=== PATIENT | female | born 1940 | race Caucasian/White ===

== ENCOUNTER 2023-04-09 23:17 | Inpatient (IN) | payer OTHER ==
[~2023-04-09] VITALS: Ht 165.1 cm; Wt 66.2 kg
[2023-04-10 01:07] LABS: BASOPHILS # (AUTO) 0.1 K/uL (0.0-0.2); BASOPHILS % (AUTO) 1.1 % (0.0-2.0); EOSINOPHILS # (AUTO) 0.1 K/uL (0.0-0.7); EOSINOPHILS % (AUTO) 1.2 % (0.0-6.0); HEMATOCRIT 45 % (33-45); HEMOGLOBIN 15.1 g/dL (11.5-14.8); LYMPHOCYTES # (AUTO) 2.1 K/uL (0.8-4.8); LYMPHOCYTES % (AUTO) 17.2 % (20.0-44.0); MEAN CORPUSCULAR HEMOGLOBIN 31 PG (26.0-33.0); MEAN CORPUSCULAR HGB CONC 33 g/dl (31.0-36.0); MEAN CORPUSCULAR VOLUME 93 fL (82-100); MONOCYTES # (AUTO) 0.7 K/uL (0.1-1.30); MONOCYTES % (AUTO) 5.8 % (2.0-12.0); NEUTROPHILS # (AUTO) 9.1 K/uL (1.8-8.9); NEUTROPHILS % (AUTO) 74.7 % (43.0-81.0); PLATELET COUNT (AUTO) 288 K/uL (150-450); RED BLOOD CELL COUNT(AUTO) 4.88 MIL/uL (4.0-5.2); RED CELL DISTRIBUTION WIDTH 14.3 % (11.5-15.0); WHITE BLOOD COUNT (AUTO) 12.2 K/uL (4.3-11.0)
[2023-04-10 01:15] LABS: CALCIUM, SERUM 9.4 mg/dL (8.5-10.1); CARBON DIOXIDE 27 mmol/L (21-32); CHLORIDE 99 mmol/L (98-107); CREATININE 0.8 mg/dL (0.6-1.3); GLUCOSE 111 mg/dL (74-106); POTASSIUM 3.2 mmol/L (3.5-5.1); SODIUM SERUM 137 mmol/L (136-145); UREA NITROGEN, BLOOD 19 mg/dL (7-18)
[2023-04-10 01:29] LABS: ALANINE AMINOTRANSFERASE 23 U/L (12-78); ALBUMIN 4.1 g/dL (3.4-5.0); ALKALINE PHOSPHATASE 88 U/L (46-116); ASPARTATE AMINOTRANSFERASE 14 U/L (15-37); BILIRUBIN,DIRECT 0.1 mg/dL (0.0-0.2); BILIRUBIN,TOTAL 0.3 mg/dL (0.2-1.0); NT-PRO BNP 694 pg/mL (0-125); TOTAL PROTEIN, SERUM 7.6 g/dL (6.4-8.2)
[2023-04-10 01:30] LABS: INR 1.01 (0.91-1.10); PARTIAL THROMBOPLASTIN TIME 31.7 SEC (24.3-34.3); PROTHROMBIN TIME 10.7 SECS (9.2-11.1)
[2023-04-10] MEDS: FUROSEMIDE 40 MG/4 ML VIAL IV ONE (02:03)
[2023-04-10] MEDS ORDERED: FUROSEMIDE 40 MG/4 ML VIAL ONE (02:03)
[2023-04-10] MEDS ORDERED: AZITHROMYCIN 500 MG VIAL ONE (04:47)
[2023-04-10] MEDS ORDERED: CEFTRIAXONE 1GM BAG (ER ONLY) 50 ML IV ONE (04:47)
[2023-04-10] MEDS: CEFTRIAXONE 1GM BAG (ER ONLY) 1 GM/50 ML PIGGYBACK IV ONE (04:48)
[2023-04-10] MEDS: AZITHROMYCIN 500 MG in IV D5W 250 ML IV ONE (04:49)
[2023-04-10] MEDS ORDERED: ALBUTEROL FS 2.5 MG/0.5 ML VIAL.NEB NEB PRN (06:00)
[2023-04-10] MEDS ORDERED: MORPHINE SULFATE INJ 2 MG/ML DISP.SYRIN IV PRN (06:00)
[2023-04-10] MEDS ORDERED: hydrALAZINE HCL IV 20 MG VIAL IV PRN (06:00)
[2023-04-10] MEDS ORDERED: IPRATROPIUM/ALBUTEROL INHALER IH SCH (06:00)
[2023-04-10] MEDS ORDERED: ONDANSETRON HCL/PF 4 MG/2 ML VIAL IVP PRN (06:00)
[2023-04-10] MEDS ORDERED: AMIODARONE 450 MG in IV D5W 250 ML IV PRN (08:00)
[2023-04-10 08:16] VITALS: O2SAT 98
[2023-04-10] MEDS: IPRATROPIUM NEB FS 0.5 MG/2.5 ML AMPUL.NEB NEB SCH (08:16)
[2023-04-10] MEDS: ALBUTEROL FS 2.5 MG/3 ML VIAL.NEB NEB SCH (08:16)
[2023-04-10] MEDS ORDERED: ALBUTEROL FS 2.5 MG/3 ML VIAL.NEB ONE (08:17)
[2023-04-10] MEDS ORDERED: IPRATROPIUM NEB FS 0.5 MG/2.5 ML AMPUL.NEB ONE (08:17)
[2023-04-10] MEDS: AMIODARONE 150 MG in IV D5W 100 ML IV ONE (08:31)
[2023-04-10 08:32] VITALS: O2SAT 100
[2023-04-10] MEDS ORDERED: HEPARIN SODIUM, PORCINE 5000 UNITS/1 ML VIAL SQ SCH (09:00)
[2023-04-10] MEDS: AMIODARONE 450 MG in IV D5W 241 ML IV PRN (09:12)
[2023-04-10] MEDS ORDERED: APIXABAN 5 MG TABLET ONE (09:14)
[2023-04-10] MEDS ORDERED: POTASSIUM CHLORIDE 20 MEQ TAB.PRT.SR PO ONE ×2 (09:14→09:25)
[2023-04-10] MEDS: POTASSIUM CHLORIDE 20 MEQ TAB.PRT.SR PO SCH (09:17)
[2023-04-10] MEDS: APIXABAN 5 MG TABLET PO SCH (09:18)
[2023-04-10] MEDS: AMIODARONE HCL 200 MG TABLET PO SCH (11:09)
[2023-04-10] MEDS ORDERED: MAGN200T5 PO (12:53)
[2023-04-10] MEDS ORDERED: AMIO100T4 PO (12:53)
[2023-04-10] MEDS ORDERED: KETO120S5 TP (12:53)
[2023-04-10] MEDS ORDERED: IPRA21SP NS (12:53)
[2023-04-10] MEDS ORDERED: ZOLP5TAB8 PO (12:53)
[2023-04-10] MEDS ORDERED: LORA10TA7 PO (12:53)
[2023-04-10] MEDS ORDERED: APIX2.5T PO (12:53)
[2023-04-10 14:05] VITALS: O2SAT 100
[2023-04-10] MEDS ORDERED: APIXABAN 2.5 MG TABLET PO SCH (17:00)
[2023-04-10 19:34] VITALS: O2SAT 100
[2023-04-10 20:00] VITALS: BP 131/68; TEMP 98.4; O2SAT 99
[2023-04-10] MEDS: ZOLPIDEM TARTRATE 5 MG TABLET PO PRN (21:09)
[2023-04-11] VITALS: BP 124/68; TEMP 98.2; O2SAT 99
[2023-04-11] MEDS: ACETAMINOPHEN 325 MG TABLET PO PRN (01:17)
[2023-04-11] MEDS: CEFTRIAXONE 1 G in IV D5W 50 ML IV SCH (03:45)
[2023-04-11 04:00] VITALS: BP 121/54; TEMP 98; O2SAT 98
[2023-04-11] MEDS: AZITHROMYCIN 500 MG in IV D5W 250 ML IV SCH (04:24)
[2023-04-11 07:50] LABS: BASOPHILS # (AUTO) 0.1 K/uL (0.0-0.2); BASOPHILS % (AUTO) 0.9 % (0.0-2.0); EOSINOPHILS # (AUTO) 0.1 K/uL (0.0-0.7); EOSINOPHILS % (AUTO) 1.9 % (0.0-6.0); HEMATOCRIT 39 % (33-45); LYMPHOCYTES # (AUTO) 1.8 K/uL (0.8-4.8); LYMPHOCYTES % (AUTO) 29.2 % (20.0-44.0); MEAN CORPUSCULAR HEMOGLOBIN 31 PG (26.0-33.0); MEAN CORPUSCULAR HGB CONC 34 g/dl (31.0-36.0); MEAN CORPUSCULAR VOLUME 92 fL (82-100); MONOCYTES # (AUTO) 0.5 K/uL (0.1-1.30); MONOCYTES % (AUTO) 8.5 % (2.0-12.0); NEUTROPHILS # (AUTO) 3.6 K/uL (1.8-8.9); NEUTROPHILS % (AUTO) 59.5 % (43.0-81.0); PLATELET COUNT (AUTO) 240 K/uL (150-450); RED BLOOD CELL COUNT(AUTO) 4.18 MIL/uL (4.0-5.2)
[2023-04-11 08:00] VITALS: BP 121/59; TEMP 97.9; O2SAT 98
[2023-04-11 08:02] LABS: ALBUMIN 3.4 g/dL (3.4-5.0); BILIRUBIN,TOTAL 0.6 mg/dL (0.2-1.0); CALCIUM, SERUM 8.8 mg/dL (8.5-10.1); CREATININE 0.7 mg/dL (0.6-1.3); MAGNESIUM 2.2 mg/dL (1.8-2.4); PHOSPHORUS 3.3 mg/dL (2.5-4.9); POTASSIUM 3.6 mmol/L (3.5-5.1); TOTAL PROTEIN, SERUM 6.3 g/dL (6.4-8.2)
[2023-04-11 08:12] VITALS: O2SAT 100
[2023-04-11 08:13] VITALS: BP 121/59
[2023-04-11] MEDS: LORATADINE 10 MG TABLET PO SCH (08:13)
[2023-04-11] MEDS ORDERED: MAGNESIUM 200 MG PO SCH (09:00)
== END 2023-04-11 10:45 | disposition home or self-care (01) | DRG 309 ==
LOC: ER 23:32 → TRANSITION 04-10 07:11 → TELE1 04-10 09:42 → TELE-TD 04-10 09:46
PROVIDERS: ADMIT Internal Medicine; ATTEND Internal Medicine
DX: I48.91 Unspecified atrial fibrillation (principal); J98.11 Atelectasis; Z20.822 Contact with and (suspected) exposure to COVID-19
CPT/HCPCS: 36415; 71045-TC; 80048-TC; 80053-TC; 80076-TC; 83605-TC; 83735-TC; 83880; 84100-TC; 84484-TC; 85025-TC; 85730-TC; 87040-TC; 93307-TC; A4223; G0378; J0282; J0456; J0696; J1644; J1940; J7060

== ENCOUNTER 2023-05-25 18:49 | Emergency (ER) | payer MEDICARE ==
[~2023-05-25] VITALS: Ht 165.1 cm; Wt 59.0 kg
[~2023-05-25 18:49] MED LIST: AMIO100T4 PO; APIX2.5T PO; IPRA21SP NS; KETO120S5 TP; LORA10TA7 PO; MAGN200T5 PO; ZOLP5TAB8 PO
[2023-05-25 19:09] VITALS: BP 152/91; TEMP 98.4; O2SAT 98
== END 2023-05-25 19:46 | disposition left against medical advice (07) ==
LOC: ER 19:01
DX: R00.2 Palpitations (principal); I48.91 Unspecified atrial fibrillation

== ENCOUNTER 2023-07-21 18:08 | Emergency (ER) | payer MEDICARE ==
[~2023-07-21] VITALS: Ht 165.1 cm; Wt 59.0 kg
[2023-07-21 18:36] LABS: BASOPHILS # (AUTO) 0.1 K/uL (0.0-0.2); BASOPHILS % (AUTO) 1.3 % (0.0-2.0); EOSINOPHILS # (AUTO) 0.1 K/uL (0.0-0.7); EOSINOPHILS % (AUTO) 1.3 % (0.0-6.0); HEMATOCRIT 44 % (33-45); HEMOGLOBIN 14.6 g/dL (11.5-14.8); LYMPHOCYTES # (AUTO) 1.8 K/uL (0.8-4.8); LYMPHOCYTES % (AUTO) 30.4 % (20.0-44.0); MEAN CORPUSCULAR HEMOGLOBIN 30 PG (26.0-33.0); MEAN CORPUSCULAR HGB CONC 33 g/dl (31.0-36.0); MEAN CORPUSCULAR VOLUME 91 fL (82-100); MONOCYTES # (AUTO) 0.5 K/uL (0.1-1.30); NEUTROPHILS # (AUTO) 3.4 K/uL (1.8-8.9); PLATELET COUNT (AUTO) 238 K/uL (150-450); RED BLOOD CELL COUNT(AUTO) 4.83 MIL/uL (4.0-5.2); WHITE BLOOD COUNT (AUTO) 5.8 K/uL (4.3-11.0)
[2023-07-21 18:43] LABS: CARBON DIOXIDE 30 mmol/L (21-32); CHLORIDE 99 mmol/L (98-107); CREATININE 0.8 mg/dL (0.6-1.3); GLUCOSE 103 mg/dL (74-106); POTASSIUM 3.5 mmol/L (3.5-5.1); SODIUM SERUM 135 mmol/L (136-145); UREA NITROGEN, BLOOD 19 mg/dL (7-18)
[2023-07-21 18:44] LABS: CALCIUM, SERUM 8.9 mg/dL (8.5-10.1)
[2023-07-21 18:54] LABS: ALANINE AMINOTRANSFERASE 34 U/L (12-78); ALBUMIN 3.8 g/dL (3.4-5.0); ALKALINE PHOSPHATASE 67 U/L (46-116); ASPARTATE AMINOTRANSFERASE 14 U/L (15-37); BILIRUBIN,DIRECT 0.1 mg/dL (0.0-0.2); BILIRUBIN,TOTAL 0.3 mg/dL (0.2-1.0); NT-PRO BNP 60 pg/mL (0-125); TOTAL PROTEIN, SERUM 7.6 g/dL (6.4-8.2)
[2023-07-21 20:22] VITALS: BP 113/73; TEMP 98.2; O2SAT 97
== END 2023-07-21 22:24 | disposition left against medical advice (07) ==
LOC: ER 18:13
DX: R91.8 Other nonspecific abnormal finding of lung field (principal); I48.91 Unspecified atrial fibrillation
CPT/HCPCS: 36415; 71045-TC; 71250-TC; 80048-TC; 80076-TC; 83880; 84484-TC; 85025-TC

== ENCOUNTER 2024-06-15 10:07 | Inpatient (IN) | payer MEDICARE ==
[2024-06-15] VITALS (8 sets, daily range): BP systolic 111–139; BP diastolic 73–79; TEMP 98.1–98.2; O2SAT 95–98
[~2024-06-15] VITALS: Ht 165.1 cm; Wt 58.1 kg
[2024-06-15 10:57] LABS: BASOPHILS # (AUTO) 0.1 K/uL (0.0-0.2); BASOPHILS % (AUTO) 0.6 % (0.0-2.0); EOSINOPHILS # (AUTO) 0.1 K/uL (0.0-0.7); EOSINOPHILS % (AUTO) 1.3 % (0.0-6.0); HEMATOCRIT 46 % (33-45); HEMOGLOBIN 15.3 g/dL (11.5-14.8); LYMPHOCYTES # (AUTO) 1.8 K/uL (0.8-4.8); LYMPHOCYTES % (AUTO) 20.5 % (20.0-44.0); MEAN CORPUSCULAR HEMOGLOBIN 31 PG (26.0-33.0); MEAN CORPUSCULAR HGB CONC 34 g/dl (31.0-36.0); MEAN CORPUSCULAR VOLUME 93 fL (82-100); MONOCYTES # (AUTO) 0.7 K/uL (0.1-1.30); MONOCYTES % (AUTO) 8.3 % (2.0-12.0); NEUTROPHILS # (AUTO) 6.2 K/uL (1.8-8.9); NEUTROPHILS % (AUTO) 69.3 % (43.0-81.0); PLATELET COUNT (AUTO) 274 K/uL (150-450); RED BLOOD CELL COUNT(AUTO) 4.91 MIL/uL (4.0-5.2); RED CELL DISTRIBUTION WIDTH 13.8 % (11.5-15.0); WHITE BLOOD COUNT (AUTO) 8.9 K/uL (4.3-11.0)
[2024-06-15 11:06] LABS: CALCIUM, SERUM 9.1 mg/dL (8.5-10.1); CREATININE 1.1 mg/dL (0.6-1.3)
[2024-06-15] MEDS ORDERED: METO25TA20 PO (14:06)
[2024-06-15 14:58] LABS: APPEARANCE,URINE CLEAR (CLEAR); BILIRUBIN,URINE NEGATIVE (NEGATIVE); BLOOD, URINE TRACE-INTA Ery/uL (NEGATIVE); COLOR,URINE YELLOW (YELLOW); KETONES,URINE NEGATIVE (NEGATIVE); LEUKOCYTE ESTERASE ,URINE TRACE (NEGATIVE); NITRITE, URINE NEGATIVE (NEGATIVE); PROTEIN,URINE NEGATIVE (NEGATIVE); UGLUCOSE NEGATIVE (NEGATIVE); UROBILINOGEN,URINE 0.2 EU/dL (0.2)
[2024-06-15 15:33] LABS: ADD URINE CULTURE NO; BACTERIA,URINE None seen /HPF (None Seen); RBC,URINE NONE SEEN /HPF (0-2); WBC,URINE 0-2 /HPF (0-3)
[2024-06-15 15:34] LABS: SQUAMOUS EPITHELIAL CELL,UR Rare /HPF (None Seen)
[2024-06-15] MEDS ORDERED: MAG HYDROX/AL HYDROX/SIMETH 30 ML UDC PO PRN (16:00)
[2024-06-15] MEDS ORDERED: MAGNESIUM HYDROXIDE 30 ML UDC PO PRN (16:00)
[2024-06-15] MEDS ORDERED: ACETAMINOPHEN 325 MG TABLET PO PRN (16:00)
[2024-06-15] MEDS ORDERED: ONDANSETRON HCL/PF 4 MG/2 ML VIAL IVP PRN (16:00)
[2024-06-15] MEDS ORDERED: Z GUARD REMEDY 4 OZ OINT TP PRN (16:00)
[2024-06-15] MEDS: METOPROLOL TARTRATE 25 MG TABLET PO SCH (18:07)
[2024-06-15] MEDS: APIXABAN 2.5 MG TABLET PO SCH (18:08)
[2024-06-15] MEDS: AZITHROMYCIN 500 MG in IV D5W 250 ML IV SCH (18:12)
[2024-06-15] MEDS: ALBUTEROL FS 2.5 MG/0.5 ML VIAL.NEB NEB SCH (20:17)
[2024-06-15] MEDS: ZOLPIDEM TARTRATE 5 MG TABLET PO PRN (21:01)
[2024-06-16] VITALS (11 sets, daily range): BP systolic 104–145; BP diastolic 57–78; TEMP 97–98.2; O2SAT 95–99
[2024-06-16 07:39] LABS: BASOPHILS % (AUTO) 0.5 % (0.0-2.0); EOSINOPHILS # (AUTO) 0.2 K/uL (0.0-0.7); EOSINOPHILS % (AUTO) 2.2 % (0.0-6.0); HEMATOCRIT 43 % (33-45); HEMOGLOBIN 14.5 g/dL (11.5-14.8); LYMPHOCYTES # (AUTO) 2.3 K/uL (0.8-4.8); LYMPHOCYTES % (AUTO) 30.2 % (20.0-44.0); MEAN CORPUSCULAR HEMOGLOBIN 31 PG (26.0-33.0); MEAN CORPUSCULAR HGB CONC 34 g/dl (31.0-36.0); MEAN CORPUSCULAR VOLUME 92 fL (82-100); MONOCYTES # (AUTO) 0.7 K/uL (0.1-1.30); MONOCYTES % (AUTO) 8.4 % (2.0-12.0); NEUTROPHILS # (AUTO) 4.6 K/uL (1.8-8.9); NEUTROPHILS % (AUTO) 58.7 % (43.0-81.0); PLATELET COUNT (AUTO) 250 K/uL (150-450); RED BLOOD CELL COUNT(AUTO) 4.68 MIL/uL (4.0-5.2); RED CELL DISTRIBUTION WIDTH 13.7 % (11.5-15.0); WHITE BLOOD COUNT (AUTO) 7.7 K/uL (4.3-11.0)
[2024-06-16 08:06] LABS: CREATININE 0.9 mg/dL (0.6-1.3); MAGNESIUM 2.3 mg/dL (1.8-2.4); PHOSPHORUS 3.5 mg/dL (2.5-4.9); POTASSIUM 3.7 mmol/L (3.5-5.1)
[2024-06-16] MEDS: IPRATROPIUM NEB FS 0.5 MG/2.5 ML AMPUL.NEB NEB SCH ×2 (08:07→16:00)
[2024-06-16 08:22] LABS: THYROID STIMULATING HORMONE 2.94 uIU/mL (0.358-3.74)
[2024-06-16] MEDS: MAGNESIUM OXIDE 400 MG TABLET PO SCH (08:23)
[2024-06-16] MEDS: FUROSEMIDE 40 MG/4 ML VIAL IV SCH (08:23)
[2024-06-16] MEDS: LORATADINE 10 MG TABLET PO SCH (08:24)
[2024-06-16] MEDS: AMIODARONE HCL 200 MG TABLET PO SCH (08:24)
[2024-06-16] MEDS: ALBUTEROL FS 2.5 MG/0.5 ML VIAL.NEB NEB SCH (16:00)
[2024-06-16] MEDS: predniSONE 20 MG TABLET PO SCH (16:15)
[2024-06-17] VITALS: BP 105/55; TEMP 97.9; O2SAT 95
[2024-06-17 04:00] VITALS: BP 116/58; TEMP 98.1; O2SAT 96
[2024-06-17 07:59] VITALS: O2SAT 96
[2024-06-17 08:00] VITALS: BP 116/62; TEMP 97.7; O2SAT 96
[2024-06-17 08:21] VITALS: BP 119/62
[2024-06-17] MEDS ORDERED: PRED20TA PO ×2 (09:27→09:31)
[2024-06-17] MEDS ORDERED: AZIT250T13 PO (09:27)
[2024-06-17] MEDS ORDERED: FLUT1BLS IH (09:29)
== END 2024-06-17 11:05 | disposition home or self-care (01) | DRG 291 ==
LOC: ER 10:28 → TELE1 16:27
PROVIDERS: ADMIT Internal Medicine; ATTEND Internal Medicine
DX: I11.0 Hypertensive heart disease with heart failure (principal); I50.33 Acute on chronic diastolic (congestive) heart failure; J18.9 Pneumonia, unspecified organism; D68.69 Other thrombophilia; J20.9 Acute bronchitis, unspecified; I48.91 Unspecified atrial fibrillation; Z79.01 Long term (current) use of anticoagulants; Z87.891 Personal history of nicotine dependence; Z20.822 Contact with and (suspected) exposure to COVID-19; Z85.118 Personal history of other malignant neoplasm of bronchus and lung
CPT/HCPCS: 36415; 71045-TC; 80048-TC; 81001; 83735-TC; 83880; 84100-TC; 84443-TC; 84484-TC; 85025-TC; 93307-TC; 94799-TC; A4223; G0378; J0456; J1938; J7060